=== PATIENT | female | born 1985 | race Caucasian/White ===

== ENCOUNTER → 2021-04-29 | Outpatient (CLI) | payer OTHER | LOC: ECHO 10:05 | DX: R07.9 Chest pain, unspecified (principal); Z86.16 Personal history of COVID-19 | CPT/HCPCS: ECHO; 93306 ==

== ENCOUNTER → 2021-07-16 | Outpatient (CLI) | payer OTHER | LOC: EXRD 08:54 | DX: M54.50 Low back pain, unspecified (principal) | CPT/HCPCS: 72100 ==